=== PATIENT | male | born 1970 | race Caucasian/White ===

== ENCOUNTER → 2016-05-11 | Outpatient (CLI) | payer BC | LOC: SUN.DIA 09:33 | DX: E11.65 Type 2 diabetes mellitus with hyperglycemia (principal); Z71.3 Dietary counseling and surveillance; I10 Essential (primary) hypertension | CPT/HCPCS: G0109 ==

== ENCOUNTER → 2016-05-18 | Outpatient (CLI) | payer BC | LOC: SUN.DIA 14:25 | DX: E11.65 Type 2 diabetes mellitus with hyperglycemia (principal); Z71.3 Dietary counseling and surveillance; I10 Essential (primary) hypertension | CPT/HCPCS: G0109 ==

== ENCOUNTER → 2016-05-25 | Outpatient (CLI) | payer BC | LOC: SUN.DIA 11:54 | DX: E11.65 Type 2 diabetes mellitus with hyperglycemia (principal); Z71.3 Dietary counseling and surveillance; I10 Essential (primary) hypertension; Z72.0 Tobacco use | CPT/HCPCS: G0109 ==

== ENCOUNTER → 2016-05-31 | Outpatient (CLI) | payer BC | LOC: SUN.DIA 08:45 | DX: E11.65 Type 2 diabetes mellitus with hyperglycemia (principal); E66.9 Obesity, unspecified; Z68.42 Body mass index [BMI] 45.0-49.9, adult; Z71.3 Dietary counseling and surveillance; I10 Essential (primary) hypertension | CPT/HCPCS: G0108 ==

== ENCOUNTER → 2016-08-10 | Outpatient (CLI) | payer BC | LOC: SUN.DIA 06-08 14:40 | DX: E11.65 Type 2 diabetes mellitus with hyperglycemia (principal); Z79.84 Long term (current) use of oral hypoglycemic drugs; Z68.42 Body mass index [BMI] 45.0-49.9, adult; E66.9 Obesity, unspecified; Z71.3 Dietary counseling and surveillance; I10 Essential (primary) hypertension; F17.290 Nicotine dependence, other tobacco product, uncomplicated | CPT/HCPCS: G0108 ==